=== PATIENT | male | born 1995 | race Caucasian/White ===

== ENCOUNTER 2016-04-09 19:12 | Emergency (ER) | payer OTHER ==
[2016-04-09] MEDS ORDERED: BACTRIM DS TABLET PO STA (19:24)
[2016-04-09 19:25] VITALS: PULSE 68; O2SAT 100
[2016-04-09] MEDS ORDERED: BACTRIM DS TABLET PO ONE (19:26)
--- NOTE | 2016-04-09 19:30 | ERPHSYRPT ---
- History of Present Illness Time Seen by Provider: 04/09/16 19:25 Source: patient Exam Limitations: no limitations Physician History: 20 y/o male comes to the ER after getting bit by an insect last Tuesday on the right thigh area. Initially patient admits to itching but no pain. Pt's says that the area has gotten bigger and is warm to touch. Pt denies any fever or chills. Timing/Duration: day(s) Quality: itchy Location: none Possible Causes: insect sting Allergies/Adverse Reactions: No Known Drug Allergies Allergy (Unverified 04/09/16 19:24) - Review of Systems Constitutional: No Fever, No Chills Eyes: No Symptoms Ears, Nose, & Throat: No Symptoms Respiratory: No Cough, No Dyspnea Cardiac: No Chest Pain, No Edema, No Syncope Abdominal/Gastrointestinal: No Abdominal Pain, No Nausea, No Vomiting, No Diarrhea Genitourinary Symptoms: No Dysuria Musculoskeletal: No Back Pain, No Neck Pain Skin: Cellulitis, No Rash Neurological: No Dizziness, No Focal Weakness, No Sensory Changes Psychological: No Symptoms Endocrine: No Symptoms All Other Systems: Reviewed and Negative - Past Medical History Pertinent Past Medical History: No - Physical Exam General Appearance: no apparent distress, alert Eye Exam: PERRL/EOMI, eyes nml inspection Ears, Nose, Throat Exam: normal ENT inspection, pharynx normal, moist mucous membranes Neck Exam: normal inspection, non-tender, supple, full range of motion Respiratory Exam: normal breath sounds, lungs clear, No respiratory distress Cardiovascular Exam: regular rate/rhythm, normal heart sounds Gastrointestinal/Abdomen Exam: soft, mass, No tenderness Back Exam: normal inspection, normal range of motion, No CVA tenderness, No vertebral tenderness Extremity Exam: normal inspection, normal range of motion Neurologic Exam: alert, oriented x 3, cooperative, normal mood/affect, sensation nml, No motor deficits Skin Exam: normal color, warm, ecchymosis - Course Nursing assessment & vital signs reviewed: Yes Ordered Tests: Medication Summary Discontinued Medications Generic Name Dose Route Start Last Admin Trade Name Freq PRN Reason Stop Dose Admin Trimethoprim/Sulfamethoxazole 1 tab 04/09/16 19:24 Bactrim Ds Tablet PO 04/09/16 19:25 STAT STA - Progress Progress: unchanged Progress Note: 04/09/16 19:28 Pt has an area of cellulitis that will require bactrim DS for 7 days. - Departure Time of Disposition: 19:28 Departure Disposition: Home Clinical Impression: Cellulitis Qualifiers: Site of cellulitis: extremity Site of cellulitis of extremity: lower extremity Laterality: right Qualified Code(s): L03.115 - Cellulitis of right lower limb Critical Care Time: No Instructions: Insect Bites and Stings, Cellulitis -- Adult Additional Instructions: Return to the ER if you should have worsening area of redness, increase swelling , drainage, fever or chills. Prescriptions: Sulfamethoxazole/Trimethoprim [Bactrim Ds Tablet] 1 each PO BID #13 tablet
[2016-04-09 19:52] VITALS: BP 129/70
== END 2016-04-09 19:52 | disposition home or self-care (01) ==
LOC: ED 19:12
DX: L03.115 Cellulitis of right lower limb (principal)
CPT/HCPCS: 99282; 99283; 99284